=== PATIENT | male | born 1995 | race African-American/Black ===

== ENCOUNTER 2016-09-26 03:15 | Emergency (ER) | payer SELFPAY ==
[~2016-09-26] VITALS: Ht 170.2 cm; Wt 80.0 kg
[~2016-09-26 03:15] MED LIST: BACT2OIN TOP; CLIN150 PO; QUET1TAB66 PO; TRAM50 PO; TRAZ100 PO
[2016-09-26 03:17] VITALS: BP 155/90; PULSE 79; RESP 22; TEMP 97.6; O2SAT 96
[2016-09-26] MEDS ORDERED: IBUP-232 PO (03:39)
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
== END 2016-09-26 07:25 | disposition home or self-care (01) ==
LOC: NEPC 03:15
DX: S90.32XA Contusion of left foot, initial encounter (principal); F90.9 Attention-deficit hyperactivity disorder, unspecified type; F10.10 Alcohol abuse, uncomplicated; V06.00XA Pedestrian on foot injured in collision with other nonmotor vehicle in nontraffic accident, initial encounter; Y99.9 Unspecified external cause status; Y93.9 Activity, unspecified
CPT/HCPCS: 73080; 73630; 99283

== ENCOUNTER 2016-11-20 15:29 | Emergency (ER) | payer SELFPAY ==
[~2016-11-20] VITALS: Ht 177.8 cm; Wt 78.0 kg
[2016-11-20 15:30] VITALS: BP 141/79; PULSE 78; RESP 20; TEMP 97.6; O2SAT 97
--- NOTE | 2016-11-20 16:24 | PD ---
HPI Chief Complaint: Complaint Time Seen by Provider: 16:22 Travel History International Travel<30 days: No Contact w/Intl Traveler<30days: No Traveled to known affect area: No History of Present Illness HPI Patient comes in for evaluation of possible STD. Patient states he began having dysuria 4 days ago, testicular pain 2 days ago, yellow greenish discharge today and suprapubic abdominal pain approximately an hour prior to arrival. Patient denies any back pain, fevers, nausea, vomiting, diarrhea, testicular swelling, chest pain, shortness of breath. Patient states his girlfriend is being evaluated for similar symptoms. PFSH Past Medical History Hx Anticoagulant Therapy: No ADHD: Yes Cancer: No Cardiovascular Problems: No Chemotherapy: No Cerebrovascular Accident: No Diabetes: No Diminished Hearing: No Psychiatric: No Respiratory: No Migraines: No Seizures: No Thyroid Disease: No Ulcer: No Past Surgical History Appendectomy: No Cholecystectomy: No Other Surgery: No Social History Alcohol Use: Yes Tobacco Use: No Substance Use: Yes Allergies-Medications (Allergen,Severity, Reaction): Coded Allergies: No Known Allergies (Verified , 11/20/16) Reported Meds & Prescriptions Reported Meds & Active Scripts Active No Active Prescriptions or Reported Medications Review of Systems Except as stated in HPI: all other systems reviewed are Neg Physical Exam Narrative GENERAL: Well-developed, well nourished, in no acute distress, and non-ill appearing. SKIN: Warm and dry. HEAD: Atraumatic. Normocephalic. EYES: Pupils equal and round. EOMI. No scleral icterus. No injection or drainage. ENT: No nasal bleeding or discharge. Mucous membranes pink and moist. NECK: Trachea midline. No JVD. Supple. No nuclear rigidity. CARDIOVASCULAR: Regular rate and rhythm. No murmur appreciated. RESPIRATORY: No accessory muscle use. No respiratory distress. GASTROINTESTINAL: Abdomen soft, non-tender, nondistended. Hepatic and splenic margins not palpable. Normal bowel sounds 4. No pulsatile mass. MUSCULOSKELETAL: No obvious deformities. No clubbing. No cyanosis. No edema. Full range of motion. NEUROLOGICAL: Awake and alert. No obvious cranial nerve deficits. Motor grossly within normal limits. Normal speech. PSYCHIATRIC: Appropriate mood and affect; insight and judgment normal. Data Data Last Documented VS Vital Signs Date Time Temp Pulse Resp B/P Pulse Ox O2 Delivery O2 Flow Rate FiO2 11/20/16 15:30 97.6 78 20 141/79 97 Room Air Orders Urinalysis - C+S If Indicated (11/20/16 16:16) Gc And Chlamydia Pcr (11/20/16 16:16) Azithromycin Powd Pack (Zithromax Powd P (11/20/16 16:30) Metronidazole (Flagyl) (11/20/16 16:30) Sodium Chloride 0.9% Flush (Ns Flush) (11/20/16 16:30) Ceftriaxone Inj (Rocephin Inj) (11/20/16 16:30) Lidocaine Pf 1% Inj (Xylocaine-Mpf 1% In (11/20/16 16:30) MDM Medical Decision Making Medical Screen Exam Complete: Yes Emergency Medical Condition: Yes Differential Diagnosis UTI, gonorrhea, chlamydia, Trichomonas, other Narrative Course Patient in no obvious distress upon re-evaluation. Any questions/concerns in reference to patient diagnosis/condition discussed and clarified prior to patient's discharge. Reinforced sheer importance of close follow up with patient 's primary physician or primary care clinic. Instructed patient to return to ED immediately, if symptoms return/worsen. Pt showed understanding of above instructions. Further instructions and recommendations were detailed in discharge paperwork. Pt ambulated without difficulty out of ED at discharge. Diagnosis Primary Impression: Dysuria Additional Impression: Penile discharge Referrals: [facility] Dept. Patient Instructions: Dysuria (ED), General Instructions, Sexually Transmitted Diseases (ED) Additional Instructions: Follow-up with your primary care physician and/or health Department for additional STD testing. Notify all sexual partners have them tested and treated. Do not have intercourse until all sexual partners tested and treated. Practice safe sex to prevent further STDs and/or unwanted pregnancies. If you would like a copy of your gonorrhea and chlamydia results bring a photo ID to medical records in 24-48 hours to get a copy. Return to the emergency department if symptoms get worse. Scripts No Active Prescriptions or Reported Meds Disposition: 01 DISCHARGE HOME Condition: Stable Medhat Carbajal Nov 20, 2016 16:24
[2016-11-20] MEDS ORDERED: LIDOCAINE HCL 1% PF 30 ML VIAL XX ONE (16:30)
[2016-11-20] MEDS ORDERED: AZITHROMYCIN PWD FOR SUSP 1 GM PACKET PO ONE (16:30)
[2016-11-20] MEDS ORDERED: metroNIDAZOLE 500 MG TAB PO ONE (16:30)
[2016-11-20] MEDS ORDERED: SODIUM CHLORIDE 0.9% FLUSH 5 ML FLUSH IVF PRN (16:30)
[2016-11-20 17:05] LABS: BACTERIA, URINE RARE /hpf; BLOOD, URINE NEG (NEG); COMMENT (UR) CULTURE INDICATED; CULTURE IF INDICATED CULTURE INDICATED; GLUCOSE,URINE NEG (NEG); KETONE, URINE NEG (NEG); MUCUS URINE FEW /lpf (OCC); NITRITE,URINE NEG (NEG); SQUAMOUS EPITHELIAL CELL URINE <1 /hpf (0-5); URINE COLOR YELLOW (YELLW/STRAW)
[2016-11-20 22:16] LABS: CHLAMYDIA PCR DETECTED (NOT DETECT); NEISSERIA PCR DETECTED (NOT DETECT)
== END 2016-11-20 17:06 | disposition home or self-care (01) ==
LOC: NEPB 15:29
DX: R30.0 Dysuria (principal); R36.9 Urethral discharge, unspecified; N50.819 Testicular pain, unspecified
CPT/HCPCS: 81001; 87086; 87491; 87591; 96372; 99283; J0696

== ENCOUNTER 2016-12-23 10:22 | Emergency (ER) | payer OTHER ==
[~2016-12-23] VITALS: Ht 177.8 cm; Wt 80.0 kg
[2016-12-23 10:33] VITALS: BP 130/78; PULSE 75; RESP 20; TEMP 97.6; O2SAT 98
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
[2016-12-23] MEDS ORDERED: ACETAMINOPHEN/HYDROcodone 325 MG/5 MG TAB PO ONE (11:00)
[2016-12-23] MEDS ORDERED: IBUPROFEN 600 MG TAB PO ONE (11:00)
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
[2016-12-23] MEDS ORDERED: IBUP-232 PO (12:37)
== END 2016-12-23 13:44 | disposition home or self-care (01) ==
LOC: NEPA 10:22
DX: S46.919A Strain of unspecified muscle, fascia and tendon at shoulder and upper arm level, unspecified arm, initial encounter (principal); S13.4XXA Sprain of ligaments of cervical spine, initial encounter; S86.912A Strain of unspecified muscle(s) and tendon(s) at lower leg level, left leg, initial encounter; V43.52XA Car driver injured in collision with other type car in traffic accident, initial encounter
CPT/HCPCS: 71010; 72100; 72170; 73030; 73564; 99284